=== PATIENT | female | born 1985 | race Two or more races ===

== ENCOUNTER 2021-06-19 10:15 | Inpatient (IN) | payer OTHER ==
[~2021-06-19] VITALS: Ht 170.2 cm; Wt 98.9 kg
[2021-06-26] MEDS ORDERED: ROBITUSSIN COU237 M1 PO (09:14)
[2021-06-26] MEDS ORDERED: PRENATAL TABLE1 EAC1 PO (09:15)
[2021-06-26] MEDS ORDERED: SYNTHROID137 MCG PO (09:15)
[2021-06-26] MEDS ORDERED: LABETALOL HCL100 MG PO (09:16)
== END 2021-06-28 17:20 | disposition home or self-care (01) | DRG 807 ==
LOC: LDR 06-26 05:49 → OB/GYN 06-26 16:40 → LDR 06-28 10:15 → OB/GYN 06-28 17:20
PROVIDERS: ADMIT Obstetrics & Gynecology; ATTEND Obstetrics & Gynecology
PROC: 10E0XZZ Delivery of Products of Conception, External Approach (ICD-10-PCS; principal; 2021-06-26)
PROC: 4A1HXFZ Monitoring of Products of Conception, Cardiac Rhythm, External Approach (ICD-10-PCS; 2021-06-26)
DX: O10.02 Pre-existing essential hypertension complicating childbirth (principal); O99.284 Endocrine, nutritional and metabolic diseases complicating childbirth; E03.9 Hypothyroidism, unspecified; Z37.0 Single live birth; Z3A.39 39 weeks gestation of pregnancy